=== PATIENT | female | born 1985 | race Two or more races ===

== ENCOUNTER → 2024-05-02 | Emergency (ER) | payer OTHER ==
[~2024-05-02] VITALS: Ht 162.6 cm; Wt 59.0 kg
[~2024-05-02] MED LIST: 0.9 % SODIUM CHLORIDE 1,000 ML IV ONE; 0.9 % SODIUM CHLORIDE 1,000 ML IV STA; FAMOTIDINE/PF 20 MG in 0.9 % SODIUM CHLORIDE 8 ML IV PUSH SCH; FAMOTIDINE/PF 20 MG/2 ML VIAL IV PUSH STA; HYOSCYAMINE SULFATE 0.125 MG TAB.SUBL ONE; HYOSCYAMINE SULFATE 0.125 MG TAB.SUBL SL ONE; MEPERIDINE HCL/PF 25 MG/ML VIAL IV STA; MEPERIDINE HCL/PF 50 MG/ML VIAL IM PRN; MEPERIDINE HCL/PF 50 MG/ML VIAL IM STA; MORPHINE SULFATE 4 MG/ML VIAL IV STA; PIPERACILLIN/TAZOBACTAM SODIUM 3.375 GM VIAL IV STA; PROMETHAZINE HCL 50 MG/ML AMPUL IM ONE; PROMETHAZINE HCL 50 MG/ML AMPUL IM STA
[2024-05-02 20:36] LABS: HEMOGLOBIN 14.3 g/dL (12.0-15.00); MEAN CELL VOLUME 86.3 fL (80.00-100.00); MEAN CORPUSCULAR HEMOGLOBIN 29.3 pg (27.00-32.0); PLATELET COUNT 315 K/uL (150-450); RED BLOOD COUNT 4.87 M/uL (4.00-6.00); RED CELL DISTRIBUTION WIDTH 14.3 % (11.5-14.5)
[2024-05-02 21:14] LABS: INR 0.97; PARTIAL THROMBOPLASTIN TIME 26.2 SECONDS (22.0-34.0); PROTHROMBIN TIME 10.6 SECONDS (9.0-11.5)
[2024-05-02 21:15] LABS: ALBUMIN 4.3 gm/dL (3.4-5.0); BILIRUBIN TOTAL 0.66 mg/dL (0.3-1.2); CALCIUM 9.8 mg/dL (8.5-10.1); CREATININE SERUM 0.82 mg/dL (0.55-1.02); GFR 77.21; GLOBULINA 3.9 G/DL (2.4-3.5); POTASSIUM 3.48 mEq/L (3.5-5.1); TOTAL PROTEIN 8.2 gm/dL (6.4-8.2)
[2024-05-03 06:24] LABS: HEMATOCRIT 39.1 % (36.0-45.00); HEMOGLOBIN 12.9 g/dL (12.0-15.00); MEAN CELL VOLUME 88.3 fL (80.00-100.00); MEAN CORPUSCULAR HEMOGLOBIN 29.1 pg (27.00-32.0); MEAN CORPUSCULAR HGB CONC 32.9 g/dl (32.0-36.0); PLATELET COUNT 285 K/uL (150-450); RED BLOOD COUNT 4.43 M/uL (4.00-6.00); RED CELL DISTRIBUTION WIDTH 14.2 % (11.5-14.5)
[2024-05-03 06:28] LABS: ALBUMIN 3.6 gm/dL (3.4-5.0); BILIRUBIN TOTAL 0.67 mg/dL (0.3-1.2); BILIRUBIN,CONJUGATED 0.18 mg/dL (0.0-0.2); BILIRUBIN,UNCONJUGATED 0.49 mg/dL (0.0-0.6); TOTAL PROTEIN 7.2 gm/dL (6.4-8.2)
[2024-05-03 08:51] LABS: URINE APPEARANCE Cloudy; URINE BILIRRUBIN Negative (NEGATIVE); URINE BLOOD Negative; URINE COLOR Dark Yellow; URINE GLUCOSE Negative (NEGATIVE); URINE LEUKOCYTE Trace; URINE NITRATE Negative; URINE UROBILINOGEN 0.2 E.U./dl
[2024-05-03 08:54] LABS: URINE BACTERIA 4954.6 uL (0.0-1933); URINE RBC 7.9 uL (0.0-20.8); URINE WBC 29.1 uL (0.0-23.2)
[2024-05-03 09:42] LABS: URINE CAST 1.03 uL (0.0-1.40); URINE EPITHELIAL CELLS > 201.7 uL (0.0-38.8); URINE KETONE 40 (NEGATIVE); URINE PROTEIN 100 (NEGATIVE)
== END | disposition left against medical advice (07) ==
LOC: ER 16:49
PROVIDERS: General Practice
DX: R10.9 Unspecified abdominal pain (principal)